=== PATIENT | male | born 1950 | race Caucasian/White ===

== ENCOUNTER 2025-01-18 08:30 | Day surgery (SDC) | payer OTHER ==
[~2025-01-18] VITALS: Ht 185.4 cm; Wt 92.0 kg
[~2025-01-18 08:30] MED LIST: FAMO20; FISH OIL 1,2001 EAC1; LISINOPRIL-HCT1 EACH; OMEP20ER; ZOCOR20 MG
[2025-01-18] MEDS ORDERED: METO100 (08:48)
[2025-01-18 11:26] VITALS: BP 141/81
== END 2025-01-18 11:45 | disposition home or self-care (01) ==
LOC: ORSCSDS 08:30
PROVIDERS: Internal Medicine Gastroenterology
PROC: 0DBH8ZX Excision of Cecum, Via Natural or Artificial Opening Endoscopic, Diagnostic (ICD-10-PCS; principal; 2025-01-18 10:00)
DX: Z12.11 Encounter for screening for malignant neoplasm of colon (principal); D12.0 Benign neoplasm of cecum; Z86.0101 Personal history of adenomatous and serrated colon polyps
CPT/HCPCS: 88305; J2704; J7120